=== PATIENT | male | born 1955 | race African-American/Black ===

== ENCOUNTER 2022-10-02 09:29 | Day surgery (SDC) | payer OTHER ==
[2022-08-04 14:38] VITALS: BMI 25.1
[2022-10-02] MEDS ORDERED: PROPOFOL 40 ML ONE (12:24)
[2022-10-02] MEDS ORDERED: PROPOFOL 20 ML ONE (12:43)
== END 2022-10-02 13:22 | disposition home or self-care (01) ==
LOC: CSHSDC 09:29
PROVIDERS: ATTEND Internal Medicine Gastroenterology
PROC: 0DJD8ZZ Inspection of Lower Intestinal Tract, Via Natural or Artificial Opening Endoscopic (ICD-10-PCS; principal; 2022-10-02)
PROC: 0DJ08ZZ Inspection of Upper Intestinal Tract, Via Natural or Artificial Opening Endoscopic (ICD-10-PCS; 2022-10-02)
DX: D50.9 Iron deficiency anemia, unspecified (principal); K57.30 Diverticulosis of large intestine without perforation or abscess without bleeding; K64.8 Other hemorrhoids; K63.89 Other specified diseases of intestine; K44.9 Diaphragmatic hernia without obstruction or gangrene; K21.9 Gastro-esophageal reflux disease without esophagitis; M10.9 Gout, unspecified; I10 Essential (primary) hypertension; Z87.891 Personal history of nicotine dependence; Z86.010 Personal history of colon polyps; Z94.81 Bone marrow transplant status; Z79.899 Other long term (current) drug therapy
CPT/HCPCS: J2704